=== PATIENT | female | born 1940 | race African-American/Black ===

== ENCOUNTER 2022-12-16 17:44 | Emergency (ER) | payer OTHER ==
[~2022-12-16] VITALS: Ht 157.5 cm; Wt 59.0 kg
[2022-12-16 17:47] VITALS: BP 150/71
[2022-12-16] MEDS ORDERED: ACETAMINOPHEN 325MG TABLET PO ONE (18:30)
== END 2022-12-16 21:25 | disposition home or self-care (01) ==
LOC: ER 17:44
DX: S00.83XA Contusion of other part of head, initial encounter (principal); S80.02XA Contusion of left knee, initial encounter; S80.01XA Contusion of right knee, initial encounter; I10 Essential (primary) hypertension; E78.00 Pure hypercholesterolemia, unspecified; Y04.0XXA Assault by unarmed brawl or fight, initial encounter; Y07.499 Other family member, perpetrator of maltreatment and neglect; Y93.89 Activity, other specified; Y92.018 Other place in single-family (private) house as the place of occurrence of the external cause
CPT/HCPCS: 70486; 73502; 73560; 99284

== ENCOUNTER 2025-03-26 06:22 | Emergency (ER) | payer OTHER ==
[~2025-03-26] VITALS: Ht 160 cm; Wt 50.0 kg
[2025-03-26 06:27] VITALS: O2SAT 9
[2025-03-26] MEDS: SODIUM CHLORIDE 0.9% 1,000 ML IV ONE (07:16)
[2025-03-26] MEDS: KETOROLAC 30MG/ML VIAL IV ONE (07:16)
[2025-03-26 07:51] LABS: BASOPHILS % 1.2 % (0.0-2.0); HEMATOCRIT. 37.8 % (36.0-48.0); HEMOGLOBIN. 12.5 g/dL (12.0-16.0); MEAN CORPUSCULAR HEMOGLOBIN 30.8 pg (28.0-32.0); MEAN CORPUSCULAR HGB CONC 33.2 g/dL (31.0-37.0); MEAN CORPUSCULAR VOLUME 92.8 fL (81.0-99.0); MEAN PLATELET VOLUME 9.2 fl (7.4-10.4); MONOCYTES % 10.1 % (2.0-8.0); NEUTROPHILS % 57.7 % (40.0-76.0); PLATELET 231 x1000/uL (130-400); RED BLOOD CELL COUNT 4.07 mill/uL (4.2-5.4); RED CELL DISTRIBUTION WIDTH 14.9 % (11.6-14.6); WHITE BLOOD COUNT 4.5 x1000/uL (4.5-11.0)
[2025-03-26 07:58] LABS: CARBON DIOXIDE 26 mEq/L (21-32); CHLORIDE 108 mEq/L (98-107); POTASSIUM 3.1 mEq/L (3.5-5.1); SODIUM 145 mEq/L (136-145)
[2025-03-26 07:59] LABS: CALCIUM 10.3 mg/dL (8.7-10.4)
[2025-03-26 08:03] LABS: TROPONIN I HIGH SENSITIVITY 28 ng/L (3.0-34)
[2025-03-26 08:04] LABS: CREATININE 0.9 mg/dL (0.6-1.0); GLUCOSE 78 mg/dL (70-105); UREA NITROGEN BLOOD 9 mg/dL (9-23)
[2025-03-26] MEDS: ACETAMINOPHEN WITH CODEINE 300/30MG TABLET PO ONE (09:42)
[2025-03-26 12:25] VITALS: BP 178/71; PULSE 40; RESP 14; TEMP 36.9; O2SAT 100
== END 2025-03-26 12:50 | disposition short-term general hospital (02) ==
LOC: ER 06:22 → CANBEDREQ 12:18 → ER 12:50
DX: M54.2 Cervicalgia (principal); E78.00 Pure hypercholesterolemia, unspecified; I10 Essential (primary) hypertension; Z85.038 Personal history of other malignant neoplasm of large intestine
CPT/HCPCS: 99285; 96374; 96361; 72125; 71045; 80048; 85025; 84484; 36415; 93005; J1885; J7030; A4606